=== PATIENT | male | born 1995 | race Native Hawaiian/Other Pacific Islander ===

== ENCOUNTER → 2023-01-23 11:13 | Outpatient (CLI) | payer OTHER, SELFPAY ==
--- NOTE | 2023-01-23 11:21 | DI.MRI.S_ITS ---
PROCEDURE: MR HEAD/BRAIN WO CON INDICATIONS: Epilepsy, unspecified, not intractable, without st TECHNIQUE: Noncontrast axial T1 spin echo, axial T2 fast spin echo, sagittal and axial FLAIR, axial gradient echo, axial diffusion and ADC, coronal thin-slice T2 FSE through the brain. Optional contrast, followed by axial and coronal and sagittal 3D VIBE or T1 spin echo with fat saturation sequences through the brain. COMPARISON: None. FINDINGS: Image quality: Excellent. CSF spaces: Ventricles are normal in size and shape. Basal cisterns are patent. No extra-axial fluid collections. Brain: No intracranial bleeds or mass effects. Velasquez-white matter interface appears intact. Diffusion weighted images demonstrate no acute ischemic insults. Brainstem appear normal. Normal intravascular flow voids are present. The hippocampal regions appear normal and symmetric in morphology. Skull and face: Calvarial marrow signal is normal. Orbits appear normal. Sinuses: Sinuses and mastoids are clear. IMPRESSION: Normal brain MRI for age, without a cause of seizures identified. The hippocampi demonstrate a normal, symmetric appearance. Dictated by: Brian Murray M.D. on 01/23/2023 at 11:13 Approved by: Brian Murray M.D. on 01/23/2023 at 11:14
== END ==
PROVIDERS: PCP Student in an Organized Health Care Education/Training Program; Referring Provider General Practice; Visit Provider General Practice
DX: G40.909 Epilepsy, unspecified, not intractable, without status epilepticus (principal)
CPT/HCPCS: 70551